=== PATIENT | female | born 1945 | race Two or more races ===

== ENCOUNTER 2018-06-29 08:08 | Emergency (ER) | payer MEDICARE, OTHER, SELFPAY ==
[~2018-06-29] VITALS: Ht 152.4 cm; Wt 67.0 kg
[2018-06-29] MEDS ORDERED: NORT25CA78 PO (09:00)
[2018-06-29] MEDS ORDERED: GABA300C10 PO (09:00)
[2018-06-29 10:11] LABS: BASOPHILS % (AUTO) 1 % (0-1); EOSINOPHILS # (AUTO) 0.28 x10^3/uL (0-0.4); EOSINOPHILS % (AUTO) 4 % (1-7); LYMPHOCYTES # (AUTO) 3.05 x10^3/uL (1-3.4); LYMPHOCYTES % (AUTO) 42 % (22-44); MD NO; MEAN CORPUSCULAR HEMOGLOBIN 30.5 pg (27.0-34.8); MEAN CORPUSCULAR HGB CONC 34.1 g/dL (32.4-35.8); MEAN CORPUSCULAR VOLUME 89.5 fL (80-100); MEAN PLATELET VOLUME 8.3 fL (7.4-10.4); MONOCYTES # (AUTO) 0.98 x10^3/uL (0.2-0.8); MONOCYTES % (AUTO) 13 % (2-9); NEUTROPHILS # (AUTO) 2.92 x10^3/uL (1.8-6.8); NEUTROPHILS % (AUTO) 40 % (42-75); PLATELET COUNT 232 x10^3/uL (130-400); RED BLOOD COUNT 4.65 x10^6/uL (3.82-5.3)
[2018-06-29 10:24] LABS: ALANINE AMINOTRANSFERASE 28 U/L (12-78); ALBUMIN 3.8 g/dL (3.4-5.0); ANION GAP 6 mmol/L (5-15); CALCIUM 8.9 mg/dL (8.5-10.1); CHLORIDE 111 mmol/L (98-107); CREATININE 0.83 mg/dL (0.55-1.02)
[2018-06-29 10:27] LABS: ALKALINE PHOSPHATASE 94 U/L (45-117); BILIRUBIN,TOTAL 0.4 mg/dL (0.2-1.0); TOTAL PROTEIN 8.1 g/dL (6.4-8.2)
[2018-06-29 11:45] VITALS: BP 122/58
== END 2018-06-29 11:47 | disposition home or self-care (01) ==
LOC: ED 09:33
DX: J15.9 Unspecified bacterial pneumonia (principal); J00 Acute nasopharyngitis [common cold]; J32.0 Chronic maxillary sinusitis
CPT/HCPCS: 36415; 71046; 80053; 85025; 99284

== ENCOUNTER 2019-01-26 06:00 | Emergency (ER) | payer MEDICARE ==
[~2019-01-26] VITALS: Ht 154.9 cm; Wt 69.2 kg
[~2019-01-26 06:00] MED LIST: GABA300C10 PO; NORT25CA78 PO
--- NOTE | 2019-01-26 06:34 | NUR ---
Pa at bedside for asessment.
[2019-01-26] MEDS ORDERED: HYDROcodone/APAP 5/325 TABLET ONE (06:44)
[2019-01-26] MEDS ORDERED: ONDANSETRON ODT 4 MG ONE (06:44)
[2019-01-26] MEDS ORDERED: HYDROcodone/APAP 5/325 TABLET PO ONE (07:00)
[2019-01-26] MEDS ORDERED: ONDANSETRON 4 MG TABLET PO ONE (07:00)
[2019-01-26 07:19] LABS: BASOPHILS % (AUTO) 1 % (0-1); EOSINOPHILS # (AUTO) 0.23 x10^3/uL (0-0.4); EOSINOPHILS % (AUTO) 3 % (1-7); LYMPHOCYTES % (AUTO) 32 % (22-44); MD NO; MEAN CORPUSCULAR HEMOGLOBIN 29.6 pg (27.0-34.8); MEAN CORPUSCULAR HGB CONC 33.3 g/dL (32.4-35.8); MEAN CORPUSCULAR VOLUME 88.9 fL (80-100); MEAN PLATELET VOLUME 8.5 fL (7.4-10.4); MONOCYTES % (AUTO) 8 % (2-9); NEUTROPHILS # (AUTO) 4.11 x10^3/uL (1.8-6.8); NEUTROPHILS % (AUTO) 55 % (42-75); PLATELET COUNT 252 x10^3/uL (130-400); RED BLOOD COUNT 4.64 x10^6/uL (3.82-5.3)
[2019-01-26 07:21] LABS: HCT (SEDRATE) 41.3 % (34.6-47.8)
[2019-01-26 07:50] VITALS: BP 111/79
--- NOTE | 2019-01-26 08:00 | NUR ---
patient placed in recheck
--- NOTE | 2019-01-26 08:03 | NUR ---
PT RESTING ON GURNEY WITH FAMILY AT BEDSIDE, PT STATES PAIN IS MUCH CONTROLLED, STATES "A LITTLE PAIN". VSS, NAD NOTED. ER PROVIDER IN TO SEE PT TO RE-EVAL. ANTICIPATE D/C HOME
== END 2019-01-26 08:46 | disposition home or self-care (01) ==
LOC: ED 07:31
DX: G44.229 Chronic tension-type headache, not intractable (principal)
CPT/HCPCS: 36415; 85025; 85651; 99283; Q0162